=== PATIENT | female | born 1990 | race Caucasian/White ===

== ENCOUNTER 2022-11-15 07:27 | Day surgery (SDC) | payer OTHER ==
[2022-11-11 10:17] LABS: BASOPHILS % (AUTO) 0.5 % (0.0-2.0); EOSINOPHILS # (AUTO) 0.3 K/uL (0.0-0.4); EOSINOPHILS % (AUTO) 6.1 % (0.0-4.0); HEMATOCRIT 43.5 % (36-48); HEMOGLOBIN 14.2 g/dL (12.0-16.0); LYMPHOCYTES # (AUTO) 1.2 K/uL (1.0-5.5); LYMPHOCYTES % (AUTO) 27.6 % (20.5-51.5); MEAN CORPUSCULAR HEMOGLOBIN 29 pg (27-31); MEAN CORPUSCULAR HGB CONC 33 % (32-36); MEAN CORPUSCULAR VOLUME 88 fL (79.0-98.0); MONOCYTES # (AUTO) 0.4 K/uL (0.0-1.0); MONOCYTES % (AUTO) 9.2 % (1.7-9.3); NEUTROPHILS # (AUTO) 2.5 K/uL (1.8-7.7); NEUTROPHILS % (AUTO) 56.6 % (40.0-70.0); PLATELET COUNT (AUTO) 338 K/uL (130-430); RED BLOOD CELL COUNT(AUTO) 4.94 MIL/uL (4.2-6.2); RED CELL DISTRIBUTION WIDTH 14.8 % (9.0-15.0); WHITE BLOOD COUNT (AUTO) 4.4 K/uL (4.8-10.8)
[2022-11-11 10:23] LABS: CALCIUM 8.4 mg/dL (8.4-11.0); CREATININE 0.81 mg/dL (0.55-1.30)
[2022-11-11 10:43] LABS: BILIRUBIN,URINE NEGATIVE (NEGATIVE); BLOOD, URINE NEGATIVE (NEGATIVE); CLARITY/URINE CLEAR (CLEAR); COLOR,URINE YELLOW (YELLOW); GLUCOSE,URINE NEGATIVE (NEGATIVE); KETONES,URINE NEGATIVE (NEGATIVE); LEUKOCYTE ESTERASE ,URINE TRACE (NEGATIVE); NITRITE, URINE NEGATIVE (NEGATIVE); PH,URINE 7.5 (5.0-8.0); PROTEIN URINE NEGATIVE (NEGATIVE); UROBILINOGEN,URINE 0.2 (0.2-1.0)
[2022-11-11 11:06] LABS: HCG,QUAL RESULT NEGATIVE (NEGATIVE)
[2022-11-11 11:11] LABS: BACTERIA,URINE None Seen /HPF (None Seen); RBC,URINE 0-3 /HPF (0-3); WBC,URINE 0-3 /HPF (0-3)
[~2022-11-15] VITALS: Ht 170.2 cm; Wt 95.3 kg
[2022-11-15 08:04] LABS: HCG,QUAL RESULT NEGATIVE (NEGATIVE)
[2022-11-15] MEDS ORDERED: PROPOFOL 200MG/ 20ML VIAL (DIPRIVAN) IV ONE (09:15)
[2022-11-15] MEDS ORDERED: fentaNYL CITRATE/PF 100 MCG/2 ML AMP ONE (09:15)
[2022-11-15] MEDS ORDERED: NS 50 ML BAG IV ONE (09:15)
[2022-11-15] MEDS ORDERED: NS 1000 ML IV.SOLN IV ONE (09:15)
[2022-11-15] MEDS ORDERED: ONDANSETRON HCL 4 MG/2 ML VIAL ONE (09:15)
[2022-11-15] MEDS ORDERED: NS IRRIG SOLN 1000 ML IR ONE (09:15)
[2022-11-15] MEDS ORDERED: LIDOCAINE 1% 10 MG/ML, 50 ML MDV ONE (09:15)
[2022-11-15] MEDS ORDERED: MIDAZOLAM HCL/PF 2 MG/2 ML SYRINGE ONE (09:15)
[2022-11-15] MEDS ORDERED: METOCLOPRAMIDE HCL 10 MG/2 ML VIAL ONE (09:15)
[2022-11-15] MEDS ORDERED: ONDANSETRON HCL 4 MG/2 ML VIAL IVP PRN ×2 (09:45→10:00)
[2022-11-15] MEDS ORDERED: HYDROmorphone 1 MG/ML INJ. CARTRIDGE IVP PRN (09:45)
[2022-11-15] MEDS ORDERED: KETOROLAC TROMETHAMINE 30 MG VIAL IVP PRN (09:45)
[2022-11-15] MEDS ORDERED: LR 1,000 ML IV SCH (09:45)
[2022-11-15] MEDS ORDERED: HYDROmorphone 2 MG/ML VIAL IVP PRN (09:45)
[2022-11-15] MEDS ORDERED: HYDROcodone/ACETAMIN 5-325 MG TAB (NORCO/ VICODIN) PO PRN ×2 (10:00)
[2022-11-15 14:00] VITALS: BP_SYST 113
== END 2022-11-15 11:25 | disposition home or self-care (01) ==
LOC: SDS 07:27 → SMU 07:28 → SDS 11:25
PROVIDERS: ATTEND Obstetrics & Gynecology Gynecology
DX: T83.89XA Other specified complication of genitourinary prosthetic devices, implants and grafts, initial encounter (principal); F32.A Depression, unspecified; F17.210 Nicotine dependence, cigarettes, uncomplicated; Y82.8 Other medical devices associated with adverse incidents
CPT/HCPCS: 80048; 81000; 84703 ×2; 85025; 87081; 36415 ×2; 71046; 58562; 86886; 86900; 86901; 87070; 87075; 88305; J2001; J2765; J3465; J2405; J2704; J3010; J7120; J7030